=== PATIENT | female | born 1955 | race Caucasian/White ===

== ENCOUNTER 2019-02-17 06:47 | Day surgery (SDC) | payer OTHER ==
[~2019-02-17] VITALS: Ht 152.4 cm; Wt 64.3 kg
[~2019-02-17 06:47] MED LIST: ASPI-817 PO; ATOR20TA38 PO; BENA20TA4 PO; BP MEDS; HYDR25TA6 PO; LORA10TA3 PO; MECL25TA2 PO; NITR-58 PO
[2019-02-17 08:03] VITALS: Ht 152.4 cm; Wt 64.3 kg
[2019-02-17 08:39] VITALS: BP 169/79; PULSE 65; RESP 19
[2019-02-17] MEDS ORDERED: MIDAZOLAM 1 MG/ML 2 ML INJ ONE ×2 (09:44)
[2019-02-17] MEDS ORDERED: FENTAnyl 50 MCG/ML VIAL ONE (09:44)
[2019-02-17 10:10] VITALS: BP 129/70; RESP 13
== END 2019-02-17 12:22 | disposition home or self-care (01) ==
LOC: GIL 06:47
PROVIDERS: ATTEND Internal Medicine Gastroenterology
DX: Z12.11 Encounter for screening for malignant neoplasm of colon (principal); K64.4 Residual hemorrhoidal skin tags; K57.30 Diverticulosis of large intestine without perforation or abscess without bleeding; I10 Essential (primary) hypertension
CPT/HCPCS: 45378; J2250; J3010; Z7610